=== PATIENT | male | born 1965 | race Hispanic/Latino ===

== ENCOUNTER 2020-02-05 20:01 | Emergency (ER) | payer BC ==
[2020-02-05] MEDS ORDERED: Ondansetron PF 4 MG/2 ML Vial ONE (20:19)
[2020-02-05] MEDS ORDERED: Midazolam HCl 2 mg/2 ml Vial ONE (20:37)
--- NOTE | 2020-02-05 20:58 | CT ---
CT OF THE BRAIN WITHOUT CONTRAST: 02/05/20 COMPARISON: 02/05/20 HISTORY: Patient was being transferred from [place] to [facility] for plasmapheresis and the salesperson women's dresses thought patien t was having a stroke in the ambulance. Patient has left sided weakness. TECHNIQUE: Multiple contiguous axial images were obtained in a CT of the brain without contrast. FINDINGS: The brain is normal in morphology and attenuation without focal lesions or confluent areas of infarct ion. There is no evidence of hydrocephalus, intracranial hemorrhage or extra-axial fluid collection. The calvarium and overlying soft tissues are unremarkable. The visualized paranasal sinuses and masto id air cells are well aerated. IMPRESSION: No evidence of acute intracranial abnormality. POS: FELICIAA
[2020-02-05 21:08] LABS: INR-International Normal Ratio 1.3; PTT 31.8 SEC (22.9-36.1); Prothrombin Time 16.2 SEC (12.0-14.7)
[2020-02-05 21:12] LABS: #Lymphocytes 0.9 thou/uL (1.20-3.40); #Monocytes 0.3 thou/uL (0.11-0.59); #Neutrophils 6.7 thou/uL (1.40-6.50); %Basophils 0.4 % (0.0-1.0); %Eosinophils 0.1 % (0.0-10.0); %Lymphocytes 11.7 % (21.0-51.0); %Monocytes 4.1 % (0.0-10.0); %Neutrophils 83.7 % (42.0-75.0); Hemoglobin 7.6 g/dL (14.0-18.0); Mean Corpuscular HGB CONC 34.5 g/dL (32.0-36.0); Mean Corpuscular Hemoglobin 33.6 pg (27.0-31.0); Mean Corpuscular Volume 97.2 fL (78.0-98.0); Mean Platelet Volume 11.3 fL (7.4-10.4); Platelet Count 9 thou/uL (130-400); RBC Distribution Width 24.5 % (11.5-14.5); Red Blood Cell (RBC) Count 2.26 mill/uL (4.70-6.10)
[2020-02-05 21:18] LABS: CKMB 1.9 ng/mL (0-6.6)
[2020-02-05 21:20] LABS: ALT (SGPT) 75 U/L (8-55); AST (SGOT) 71 U/L (5-34); Albumin 4.3 g/dL (3.5-5.0); Alkaline Phosphatase 54 U/L (40-110); Anion Gap 21 mmol/L (10-20); BUN (Urea Nitrogen) 26 mg/dL (8.4-25.7); Bilirubin, Total 5.2 mg/dL (0.2-1.2); Calc. Creatinine Clearance 0 mL/min (70-130); Calcium 8.5 mg/dL (7.8-10.44); Carbon Dioxide 17 mmol/L (22-29); Chloride 104 mmol/L (98-107); Estimated GFR-MDRD 57; Globulin 3.1 g/dL (2.4-3.5); Glucose 142 mg/dL (70-105); Potassium 3.8 mmol/L (3.5-5.1); Protein, Total 7.4 g/dL (6.0-8.3); Sodium 138 mmol/L (136-145)
[2020-02-05 21:21] LABS: Anisocytosis MODERATE=16-30 cells (100X) (0-5/hpf); MDiff Complete? YES; Platelet Morphology Comment Appears Decreased; Polychromasia MODERATE = 3-4 cells (100X) (0-2/hpf)
[2020-02-05 21:35] LABS: Troponin I 0.441 ng/mL (< 0.028)
== END 2020-02-05 21:33 | disposition short-term general hospital (02) ==
LOC: NAV ERS 20:01 → EDBD 20:01 → NAV ERS 21:33
DX: G45.9 Transient cerebral ischemic attack, unspecified (principal); M31.1 Thrombotic microangiopathy; J45.909 Unspecified asthma, uncomplicated; D64.9 Anemia, unspecified
CPT/HCPCS: 36415; 36416; 70450; 82553; 96374; 96375; J2250; J2405